=== PATIENT | female | born 1975 | race Caucasian/White ===

== ENCOUNTER 2016-12-20 15:53 | Emergency (ER) | payer BC ==
[~2016-12-20] VITALS: Ht 160 cm; Wt 77.1 kg
[~2016-12-20 15:53] MED LIST: AMOXICILLIN 50500 MG PO; APAP/BUTALBITAL1 TA1 PO; BACTRIM DS 8001 TAB PO; BENZONATATE100 MG PO; FLEXERIL10 MG PO; HYDROCODONE1 TABLET PO; KEFLEX 500MG.500 MG PO; LEVOFLOXACIN 5500 M1 PO; NAPROXEN SODIU500 MG PO; NOMEDS *; PEN-VK500 MG PO; PREDNISONE 10MG10 MG PO; SULFAMETHOXAZOL1 TA6 PO; TAMIFLU 75MG CA75 MG PO; TAMIFLU75 MG PO; TESSALON PERLE100 M1 PO; TESSALON PERLE100 MG PO; ULTRAM 50 MG TA50 MG PO
[2016-12-20] MEDS ORDERED: AMOXICILLIN AND1 TER PO (16:03)
--- NOTE | 2016-12-20 16:44 | Emergency Room Report ---
History of Present Illness Time Seen by 1615 Presenting Problem in Triage Pt arrived:Walked Presenting Problem:SICK 2-3 WEEKS, BEEN TO DR TWICE. EARS, SINUS, STOMACH UPSET , PUT ON ANTIBIOTICS AND NO BETTER. 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 N Clinical Suspician of Infection? Y Mental Status: 1 - Regular (Normal Baseline) Sepsis Risk:Possible Sepsis Risk Have you (or family members/close friends) recently traveled outside the [place]? N If Yes, where/when: Have you had exposure to infectious disease within the past month? TB? Other? Specify: Patient newly on Augment x a day and a half for sinusitis. She is neutropenic, followed by Dr. Owen. She has sinus congestion and is not taking decongestants. She has had her symptoms for two weeks, and "was on an antibiotic that started with a c". No fever. Has had a little GI upset, but no vomiting. ALLERGIES Coded Allergies: No Known Allergies (11/04/15) Home Medications Active Scripts Cyclobenzaprine Hcl (Flexeril) 10 MG PO TID #10 TAB Prov: 11/04/15 Reported Medications AMOXICILLIN/POTASSIUM CLAV (Amoxicillin-Clav ER 1,000-62.5) 1 TAB PO BID History Medical History General CAD? No Angina: No IN: No Hypertension? No Hyperlipidemia? No CHF? No DVT? No PE? No COPD? No Asthma? No Anemia? No GERD? No Gastric ulcers? No GI Bleed? No Hernia? No Thyroid Problems? No Hypothyroidism? No CVA? No Seizures? No Diabetes? No Renal Insuffiency? No End Stage Renal Disease? No UTI? No Stones? No GB Disease: No Nephritic Syndrome? No Asplenia? No Hepatitis? No Sickle Cell Disease? No Arthritis? No Migraines? No Cataracts? No Glaucoma? No MRSA? No HIV? No TB? No Anxiety? No Depression? No Cancer? No More? Yes Additional hx: NEUTROPENIA Immunization Hx DT/Tetanus UNKNOWN Surgical Hx Previous Surgery?Y TUBAL PREG X 2 BONE [facility] CONS[facility] Hx LMP 2 Weeks Ago Social History Smoking Hx Smoker: Never Smoker Tobacco: No Alcohol Alcohol: No Review of Systems All Other Systems Reviewed and Negative ENT see HPI, ear pain, nose congestion. Comment neutropenia, followed by Dr. Owen Physical Exam Vital Signs Vital Signs Date Time Temp Pulse Resp B/P Pulse O2 O2 Flow FiO2 Ox Delivery Rate 12/20 1556 97.9 112 20 127/89 98 General Appearance normal appearance, WD/WN, no apparent distress Eye Exam - bilateral eye normal exam, bilateral eye PERRL, bilateral eye EOMI Ear, Nose, Throat hearing grossly normal, abnormal TM (R) (cloudy R TM), OP wet, no erythema or exudates at all, L maxillary sinus tenderness; nares patent with no blockage or deviation of septum; no polyps; no cobblestoning; thin clear mucoid d/c bilaterally. , No post nasal drip at all. Neck normal inspection, supple, full range of motion Respiratory Status Yes: trachea midline, chest symmetrical, non tender chest. No: respiratory distress, tender on palpation, use of accessory muscles, pain on inspiration, pain on expiration, productive cough, non productive cough. Lung Sounds bilateral: normal breath sounds, lungs clear. Cardiovascular normal exam, regular rate/rhythm, no peripheral edema, no gallop, no JVD, no murmur, no rub, normal peripheral pulses Gastrointestinal normal bowel sounds, normal exam, soft, no organomegaly, no pulsatile mass, no guarding, no rebound Extremities normal range of motion Neurologic alert, normal exam, no motor/sensory deficits, oriented x 3 ( ambulatory, alert, nonfocal) Glascow Coma Scale Glascow Coma Scale Response Value EYE response: 4 Spontaneously 4 MOTOR response: 6 OBEYS 6 VERBAL response: 5 Oriented & Converses 5 Total 15 Skin intact, normal color, warm/dry (no rashes or purpura) Medical Decision Making LABS/Meds/Orders Pt receiving controlled substance in ED? No Results/Orders Laboratory Tests 12/20/16 1645: WBC 2.6 L, RBC 4.93, Hgb 14.5, Hct 43.4, MCV 88.1, RDW 12.9, Plt Count 334, MPV 5.9 L, Gran % 37.7, Gran # 1.0 L, Total Counted Pending, Lymphocytes % 49.4, Monocytes % 10.9 H, Eosinophils % 1.5, Basophils % 0.4, Neutrophils Pending, Lymphocytes (Manual) Pending, Lymphocytes # 1.3, Monocytes # 0.3, Eosinophils # 0.0, Basophils # 0.0, Platelet Estimate Pending, PUBS MCHC 33.4, MCH 29.4 Orders Procedure Date/time Status DIFFERENTIAL-WBC 12/20 1645 Active CBC WITH AUTO DIFF 12/20 1639 Active Departure Departure Time of Disposition 172 Disposition DC Home or Self Care(routine) Clinical Impression Primary Impression: Sinusitis, acute, maxillary Condition STABLE Referrals Solange Hamilton APRN (Family) Patient Instructions DI for Sinusitis Additional Instructions See your family doctor for follow up, one to three days; see Dr. Owen next available appointment. Continue Augmentin. Recommend Claritin or Zyrtec. You may also try Sudafed decongestant. Tylenol as needed. WBC was 2.6 today. Discharge Counseling Counseled pt/family regarding diagnosis, test results, medications/RX, home care, follow up needs ED Critical Care Critical Care No at 1722
[2016-12-20 17:10] LABS: HEMOGLOBIN 14.5 g/dL (12.2-16.2); LYMPH # 1.3 K/mm3 (0.7-4.5); LYMPH % 49.4 % (10-50.0)
[2016-12-20 17:32] VITALS: BP 127/89
[2016-12-20 17:33] LABS: NEUTROPHILS 16 % (42-76)
--- OUTSIDE RECORDS SUMMARY | 2016-12-26 07:47 | External Medical Summary Rpt ---
Author Author , Organization [employer] Address Unknown Phone Unavailable Care Team Providers Care Teleservices Representative Name Role Phone [facility], Unavailable Unavailable [facility] Purpose Continuity of Care Document - 08-29-2009 through 2016 Problems Code Diagnosis DOS Provider Status 33781 NEUTROPENIA 11-26-2009 [facility] UNSPECIFIED 7856 ENLARGEMENT 11-26-2009 [facility] NODES 10421 CYCLIC 11-22-2009 [facility] 18221 OTHER 11-05-2009 [facility] FATIGUE 2859 UNSPECIFIED 10-29-2009 [facility] ANEMIA [facility] 86767 UNSPECIFIED 09-16-2009 [facility] 7804 DIZZINESS 09-16-2009 [facility] GIDDINESS 70221 OTHER 09-16-2009 [facility] INVOLVING HEAD AND NECK V7260 LABORATORY 09-06-2009 [facility] EXAMINATION [facility] UNSPECIFIED 463 ACUTE 08-29-2009 [facility] TONSILLITIS [facility] Procedures Procedure DOS Code Location Performer Comment COLLECTIO 20198 [facility] N VENOUS 0 Y Y BLOOD [facility] VENIPUNCT URE CUL BACT 69159 [facility] STOOL 0 Y Y AEROBIC [facility] ISOL SALMONELL A&SHIGELL CUL BACT 62292 [facility] STOOL 0 Y Y AEROBIC [facility] ADDL PATHOGENS &ID EA SPCL STN 57492 [facility] 2 I&R 0 Y Y EXCPT [facility] MICROORG/ ENZYME/IM CYT BLOOD 72918 [facility] UN[facility]ERSIT COUNT 0 Y Y COMPLETE [facility] AUTO&AUTO DIFRNTL WBC OVA&KLEVER 79245 [facility] ITES 0 Y Y DIRECT [facility]OSPITAL [facility]OSPITAL SMEARS CONCENTRA TION & ID SMR PRIM 81775 [facility] SRC 0 Y Y GRAM/GIEM [facility] SA STAIN BCT FUNGI/KARINA L IAADIADOO 90128 [facility] NOT 0 Y Y OTHERWISE [facility] HOSPITAL SPECIFIED INF AGENT 02702 [facility] UNIVERS DET 0 Y Y NUCLEIC [facility] ACID CLOSTRIDI UM AMP PROBE BLOOD 09105 [facility] COUNT 0 Y Y COMPLETE [facility] AUTO&AUTO DIFRNTL WBC COLLECTIO 27068 [facility] N VENOUS 0 Y Y BLOOD [facility] COLLECTIO 31585 [facility] N VENOUS 0 Y Y BLOOD [facility] BLOOD 32297 [facility] COUNT 0 Y Y [facility]TE [facility]PITAL AUTO&AUTO DIFRNTL WBC BLOOD 59461 [facility] COUNT 0 Y [facility] AUTO&AUTO DIFRNTL WBC INJECTION J1440 [facility] 0 Y Y [facility] 300 MCG COLLECTIO 95464 [facility] N [facility]ENOUS 0 Y Y BLOOD [facility] URE COLLECTIO 69345 [facility] N VENOUS 0 Y Y BLOOD [facility] BLOOD 30817 [facility] COUNT 0 Y Y COMPLETE [facility] AUTO&AUTO DIFRNTL WBC BLOOD 41187 [facility] COUNT 0 Y Y COMPLETE [facility] AUTO&AUTO DIFRNTL WBC COLLECTIO 38887 [facility] N VENOUS 0 Y Y BLOOD [facility] THERAPEUT 07013 [facility] IC 0 Y Y PROPHYLAC [facility] TIC/DX INJECTION SUBQ/IM BLOOD 08939 [facility] COUNT 0 Y Y COMPLETE [facility] AUTO&AUTO DIFRNTL WBC INJECTION J1440 [facility]IT 0 Y Y [facility] 300 MCG INJECTION J1440 [facility] 0 Y Y [facility] MCG BLOOD 48708 [facility] COUNT 0 Y Y COMPLETE [facility] AUTO&AUTO DIFRNTL WBC COLLECTIO 26544 [facility] N VENOUS 0 Y Y BLOOD [facility] URE COLLECTIO 29949 [facility] N VENOUS 0 Y Y BLOOD [facility] U[facility] FLOW 64659 [facility] CYTOMETRY 0 Y Y CELL [facility] SURF MARKER TECHL ONLY EA COMPREHEN 87939 [facility] UNIVERS SIVE 0 Y Y METABOLIC HOSPITAL [facility] PANEL BLOOD 99647 [facility] COUNT 0 Y Y COMPLETE HOSPITAL [facility] AUTO&AUTO DIFRNTL WBC FLOW 78242 [facility] CYTOMETRY 0 Y Y CELL HOSPITAL [facility] SURF MARKER TECHL ONLY 1ST COMPRE 43326 [facility] AUDIOMETR 0 Y Y Y HOSPITAL [facility] THRESHOLD EVAL SP RECOGNIJ TYMPANOME 88184 [facility] TRY 0 Y Y HOSPITAL [facility] COLLECTIO 59148 [facility] N VENOUS 0 Y Y BLOOD [facility] U[facility] BASIC 28409 [facility] UNIVERS METABOLIC 0 Y Y PANEL [facility] TOTAL BLOOD 29087 [facility] UNIVERS COUNT 0 Y Y COMPLETE [facility] AUTOMATED Encounters Encounter Start End Date Code Location Performer Type Date [facility] UNIVERSIT - 0 0 Y [facility] T OFFICE 90105 UN[facility]ERS[facility] OUTPATIEN 0 0 Y T [address] UNIVERSIT - 0 0 Y [facility] T OFFICE 06287 UN[facility]ERS[facility] OUTPATIEN 0 0 Y [address] UNIVERSIT - 0 0 Y [facility] UNIVERSIT - 0 0 Y [facility] UNIVERS[facility] - 0 0 Y [facility] UNIVERSIT - 0 0 Y [facility] UNIVERS[facility] - 0 0 Y [facility] UNIVERSIT - 0 0 Y [facility] T OFFICE 11362 UNIVERSIT OUTPATIEN 0 [address] Y [address] UNIVERSIT - 0 0 Y [facility] - 0 0 Y [facility] - 0 0 Y [facility] - 0 0 Y [facility]
--- OUTSIDE RECORDS SUMMARY | 2016-12-26 07:47 | External Medical Summary Rpt ---
Author Author , Organization [employer] Address Unknown Phone Unavailable Care Team Providers Care Tray Drier Operator Name Role Phone Ibrahima Mckeon MD, Unavailable Unavailable bIrahima Mckeon MD [facility], Unavailable Unavailable [facility] Purpose Continuity of Care Document - 08-29-2009 through 2016 Problems Code Diagnosis DOS Provider Status D70.4 CYCLIC 12-08-2016 NEUTROPENIA D72.819 DECREASED 11-20-2016 WHITE BLOOD CELL COUNT, UNSPECIFIED 487.1 487.1 FLU W 08-[facility] NEC 466.0 466.0 ACUTE 10-14-2012 [facility] 493.90 493.90 10-14-2012 [place] [facility] 73808 NEUTROPENIA 11-26-2009 [facility] UNSPECIFIED 7856 ENLARGEMENT 11-26-2009 [facility] NODES 95455 CYCLIC 11-22-2009 [facility] 98584 OTHER 11-05-2009 [facility] FATIGUE 2859 UNSPECIFIED 10-29-2009 [facility] ANEMIA [facility] 04896 UNSPECIFIED 09-16-2009 [facility] 7804 DIZZINESS 09-16-2009 [facility] GIDDINESS 23483 OTHER 09-16-2009 [facility] INVOLVING HEAD AND NECK V7260 LABORATORY 09-06-2009 [facility] UNSPECIFIED 463 ACUTE 08-29-2009 [place] TONSILLITIS [facility] J01.00 ACUTE MAXILLARY SINUSITIS, UNSPECIFIED Allergies, Adverse Reactions, Alerts Type Allergy to substance Adverse Reaction to Substance Substance Reaction Severity INGREDIENT: NO KNOWN Unknown Unknown - NO KNOWN DRUG ALLERGY Medications Na ND Rx Da Fi Fi Am Da Di Ph RX Ph St me C No te ll ll ou ys ag ar # ys at rm s nt no ma ic us Or Da si cy ia de te s n re d TY 50 01 0 No LE 58 -1 NO 00 1- Lo L 45 20 ng EX 10 14 er -S 3 TR Ac ti 50 ve [address] ET Ib 62 01 0 No up 58 -1 ro 40 1- Lo fe 74 20 ng n 60 14 er 40 1 0M Ac G ti Ta ve bl et BE 57 01 0 No NZ 66 -1 ON 40 1- Lo AT 13 20 ng AT 38 14 er E 8 10 Ac 0 ti MG ve CA PS UL E AC 51 01 0 No ET 07 -1 AM 90 1- Lo IN 16 20 ng OP 19 14 er HE 9H N Ac W/ ti CO ve DE IN E #3 TA K Be 00 03 0 No nz 60 -1 on 32 8- Lo at 42 20 ng at 62 13 er e 1 10 Ac 0M ti G ve Ca ps ul e VE 00 03 0 No NT 17 -1 OL 30 8- Lo IN 68 20 ng 22 13 er HF 4 A Ac 90 ti ve MC G IN ESCAMILLA LE R Ae 08 03 0 No ro 37 -1 ch 30 8- Lo am 76 20 ng be 50 13 er r/ 0 Op Ac ti ti escamilla ve le r De 00 03 0 No xa 51 -1 me 74 8- Lo th 90 20 ng as 12 13 er on 5 e Ac 4M ti G/ ve Ml Sd v Vital Signs 08-09-2013 22:34 Name Value Interpretat Reference Comment ion Range Body 102.0 Temperature [degF] BP 87 mm[Hg] Diastolic BP Systolic 151 mm[Hg] Heart 101 /min Rate/Pulse O2% 96 % Respiratory 20 /min Rate 08-09-2013 22:04 Name Value Interpretat Reference Comment ion Range Body 102 [degF] Temperature BP 66 mm[Hg] Diastolic BP Systolic 126 mm[Hg] Heart 94 /min Rate/Pulse O2% 96 % Respiratory 20 /min Rate 10-14-2012 07:01 Name Value Interpretat Reference Comment ion Range BP 76 mm[Hg] Diastolic BP Systolic 130 mm[Hg] Heart 80 /min Rate/Pulse O2% 98 % Respiratory 16 /min Rate 10-14-2012 06:27 Name Value Interpretat Reference Comment ion Range BP 82 mm[Hg] Diastolic BP Systolic 133 mm[Hg] Heart 66 /min Rate/Pulse Respiratory 16 /min Rate 10-14-2012 05:47 Name Value Interpretat Reference Comment ion Range O2% 98 % Results Labs Lab Lab Date Result Refere Interp Status Commen Order Detail nces retati t Range on Differential panel, method unspecified - (12-20-2016 16:45) LYMPH 64 % 10% - High complet 017 50% ed 16:45 Platele NORMAL complet ts 017 ed [Presen 16:45 ce] in Blood by Light microsc opy CHLAMYDIA AND GONORRHEA TESTING (06-27-2011 15:35) Chlamyd NEGATIV complet ia 011 E ed trachom 15:35 atis rRNA [Presen ce] in Unspeci fied specime n by Probe & target amplifi cation method Neisser NEGATIV complet ia 011 E ed gonorrh 15:35 oeae rRNA [Presen ce] in Unspeci fied specime n by Probe & target amplifi cation method CHLAMYDIA AND GONORRHEA TESTING (06-27-2011 15:35) COLLECT NA complet OR 011 ed 15:35 ETHNICI WHITE, complet TY 011 NON-HIS ed 15:35 PANIC KIT September complet EXPIRAT 011 31, ed ION 15:35 2011 DATE SYMPTOM YES complet S 011 ed 15:35 REASON REVISIT complet FOR 011 /ANNUAL ed REQUEST 15:35 FAMILY PLANNIN G VISIT SPECIME FEMALE complet N 011 ENDOCER ed SOURCE 15:35 VICAL PREGNAN NO complet T 011 ed 15:35 CHART NA complet NUMBER 011 ed 15:35 Chlamyd Pending complet ia 011 ed trachom 15:35 atis rRNA [Presen ce] in Unspeci fied specime n by Probe & target amplifi cation method Neisser Pending complet ia 011 ed gonorrh 15:35 oeae rRNA [Presen ce] in Unspeci fied specime n by Probe & target amplifi cation method Procedures Procedure DOS Code Location Performer Comment COLLECTIO 16872 [facility] N VENOUS 0 Y Y BLOOD [facility] VENIPUNCT URE INF AGENT 14103 [facility] DET 0 Y Y NUCLEIC [facility] ACID CLOSTRIDI UM AMP PROBE CUL BACT 86782 [facility] STOOL 0 Y Y [facility]IC [facility]OSPITAL ISOL SALMONELL A&SHIGELL CUL BACT 33441 [facility] ST[facility]OL 0 [facility] ADDL PATHOGENS &ID EA SPCL STN 34088 [facility] 2 I&R 0 Y Y EXCPT [facility] MICROORG/ ENZYME/IM CYT BLOOD 12883 [facility] COUNT 0 Y Y COMPLETE [facility] AUTO&AUTO DIFRNTL WBC OVA&KLEVER 54150 [facility] ITES 0 Y Y DIRECT [facility]OSP[facility]OSPITAL SMEARS CONCENTRA TION & ID SMR PRIM 96444 [facility] SRC 0 Y Y GRAM/GIEM [facility] SA STAIN BCT FUNGI/KARINA L IAADIADOO 51269 [facility] NOT 0 Y Y OTHERWISE [facility] SPECIFIED BLOOD 68881 [facility] COUNT 0 Y Y COMPLETE [facility] AUTO&AUTO DIFRNTL WBC COLLECTIO 32681 [facility] N VENOUS 0 Y Y BLOOD [facility] URE COLLECTIO 63226 [facility] N VENOUS 0 Y Y BLOOD [facility] BLOOD 66420 [facility] COUNT 0 Y Y COMPLETE [facility] AUTO&AUTO DIFRNTL WBC BLOOD 63633 [facility] COUNT 0 Y Y COMPLETE [facility] AUTO&AUTO DIFRNTL WBC INJECTION J1440 [facility] UNIV[facility]IT 0 Y Y [facility] M 300 MCG COLLECTIO 41708 [facility] N VENOUS 0 Y Y BLOOD [facility] URE COLLECTIO 14766 [facility] N VENOUS 0 Y Y BLOOD [facility] URE BLOOD 30560 [facility] COUNT 0 Y Y COMPLETE [facility] AUTO&AUTO DIFRNTL WBC BLOOD 95825 [facility] COUNT 0 Y Y COMPLETE [facility] AUTO&AUTO DIFRNTL WBC COLLECTIO 02609 [facility] N VENOUS 0 Y Y BLOOD [facility] THERAPEUT 99936 [facility] IC 0 Y Y PROPHYLAC HOSPITAL [facility] TIC/DX INJECTION SUBQ/IM INJECTION J1440 [facility] UNIVERSIT 0 Y Y [facility] M 300 MCG BLOOD 52050 [facility] COUNT 0 Y [facility] AUTO&AUTO DIFRNTL WBC BLOOD 50775 [facility] COUNT 0 Y [facility] AUTO&AUTO DIFRNTL WBC INJECTION J1440 [facility] 0 Y Y [facility] M 300 MCG COLLECTIO 47862 [facility] N VENOUS 0 Y Y BLOOD [facility] VENIPUNCT URE COLLECTIO 63960 [facility] N VENOUS 0 Y Y BLOOD [facility] URE COMPREHEN 89373 [facility] SIVE 0 Y [facility] PANEL FLOW 89619 [facility] CYTOMETRY 0 Y Y CELL [facility] SURF MARKER TECHL ONLY EA BLOOD 41971 [facility] COUNT 0 Y Y COMPLETE [facility] AUTO&AUTO DIFRNTL WBC FLOW 00858 [facility] CYTOMETRY 0 Y Y CELL [facility] SURF MARKER TECHL ONLY 1ST COMPRE 25948 [facility] AUDIOMETR 0 Y Y Y [facility]OSPITAL [facility] THRESHOLD EVAL SP RECOGNIJ TYMPANOME 20758 [facility] TRY 0 Y Y [facility] BASIC 02974 [facility] UN[facility]ERS[facility] METABOLIC 0 Y Y PANEL [facility] CALCIUM TOTAL COLLECTIO 51293 [facility] N VENOUS 0 Y Y BLOOD [facility] URE BLOOD 98727 [facility] COUNT 0 Y Y COMPLETE HOSPITAL [facility] AUTOMATED Encounters Encounter Start End Date Code Location Performer Type Date Emergency KORY Mckeon MD (ER) 4 21:48 4 22:36 [facility] Emergency KORY Mckeon MD (ER) 3 05:40 3 07:02 [facility] UNIVERSIT - 0 0 Y OUTPATI HOSPITAL T OFFICE 67512 [facility] OUTPATIEN 0 0 Y T VISIT [address] UNIVERSIT - 0 0 Y [facility] UNIVERSIT - 0 0 Y [facility] T OFFICE 76524 UNIVERSIT OUTPATIEN [address] UNIVERSIT - 0 0 Y [facility] UNIVERSIT - 0 0 Y [facility] UNIVERSIT - 0 0 Y [facility] UNIVERSIT - 0 0 Y [facility] UNIVERSIT - 0 0 Y [facility] UNIVERSIT - 0 0 Y [facility] T OFFICE 32854 UNIVERSIT OUTPATIEN [address] UNIVERSIT - 0 0 Y [facility] UNIVERSIT - 0 0 Y [facility] UNIVERSIT - 0 0 Y INPATIENT HOSPITAL
--- OUTSIDE RECORDS SUMMARY | 2016-12-26 07:47 | External Medical Summary Rpt ---
Author Author , Organization [employer] Address Unknown Phone Unavailable Care Team Providers Care Yacht Captain Name Role Phone [facility], Unavailable Unavailable [facility] Purpose Continuity of Care Document - 08-29-2009 through 2016 Problems Code Diagnosis DOS Provider Status 36128 NEUTROPENIA 11-26-2009 [facility] UNSPECIFIED 7856 ENLARGEMENT 11-26-2009 [facility] NODES 25247 CYCLIC 11-22-2009 [facility] 12434 OTHER 11-05-2009 [facility] FATIGUE 2859 UNSPECIFIED 10-29-2009 [facility] ANEMIA [facility] 20293 UNSPECIFIED 09-16-2009 [facility] 7804 DIZZINESS 09-16-2009 [facility] GIDDINESS 56288 OTHER 09-16-2009 [facility] INVOLVING HEAD AND NECK V7260 LABORATORY 09-06-2009 [facility] EXAMINATION [facility] UNSPECIFIED 463 ACUTE 08-29-2009 [facility] TONSILLITIS [facility] Procedures Procedure DOS Code Location Performer Comment COLLECTIO 86677 [facility] N VENOUS 0 Y Y BLOOD [facility] VENIPUNCT URE CUL BACT 53442 [facility] STOOL 0 Y Y AEROBIC [facility] ISOL SALMONELL A&SHIGELL CUL BACT 38452 [facility] STOOL 0 Y Y [facility]OB[facility] ADDL PATHOGENS &ID EA SPCL STN 31674 [facility] 2 I&R 0 Y Y EXCPT [facility] MICROORG/ ENZYME/IM CYT BLOOD 95612 [facility] UN[facility]IT COUNT 0 Y Y COMPLETE [facility] AUTO&AUTO DIFRNTL WBC OVA&KLEVER 22047 [facility] ITES 0 Y Y DIRECT [facility] HOSPITAL SMEARS CONCENTRA TION & ID SMR PRIM 16433 [facility] SRC 0 Y Y GRAM/GIEM [facility] SA STAIN BCT FUNGI/KARINA L IAADIADOO 17811 [facility] NOT 0 Y Y OTHERWISE [facility] HOSPITAL SPECIFIED INF AGENT 20932 [facility] UN[facility]ERS DET 0 Y Y NUCLEIC [facility] ACID CLOSTRIDI UM [facility] PROBE BLOOD 51995 [facility] COUNT 0 Y Y [facility]PLETE [facility] AUTO&AUTO DIFRNTL WBC COLLECTIO 60885 [facility] N VENOUS 0 Y Y BLOOD [facility] URE COLLECTIO 30651 [facility] N VENOUS 0 Y Y BLOOD [facility] BLOOD 45336 [facility] COUNT 0 Y [facility] AUTO&AUTO DIFRNTL WBC BLOOD 29749 [facility] AUTO&AUTO DIFRNTL WBC INJECTION J1440 [facility] 0 Y Y [facility] 300 MCG COLLECTIO 75552 [facility] N VENOUS 0 Y Y BLOOD [facility] URE COLLECTIO 14117 [facility] N VENOUS 0 Y Y BLOOD [facility] BLOOD 28751 [facility] COUNT 0 Y Y [facility] AUTO&AUTO DIFRNTL WBC BLOOD 11198 [facility] COUNT 0 Y Y [facility] AUTO&AUTO DIFRNTL WBC COLLECTIO 29025 [facility] N VENOUS 0 Y Y BLOOD [facility] THERAPEUT 40242 [facility] IC 0 Y Y PROPHYLAC [facility] TIC/DX INJECTION SUBQ/IM BLOOD 86026 [facility] COUNT 0 Y Y COMPLETE [facility] AUTO&AUTO DIFRNTL WBC INJECTION J1440 [facility] 0 Y Y [facility] 300 MCG INJECTION J1440 [facility] 0 [facility] 300 MCG BLOOD 76670 [facility] COUNT 0 Y Y [facility] AUTO&AUTO DIFRNTL WBC COLLECTIO 29594 [facility] N VENOUS 0 Y Y BLOOD [facility] URE COLLECTIO 62469 [facility] N VENOUS 0 Y Y BLOOD [facility] URE FLOW 33052 [facility] CYTOMETRY 0 Y Y CELL [facility] SURF MARKER TECHL ONLY EA COMPREHEN 11830 [facility] UN[facility]ERS SIVE 0 Y Y [facility]OSP[facility] PANEL BLOOD 21868 [facility] COUNT 0 Y Y [facility] AUTO&AUTO DIFRNTL WBC FLOW 06539 [facility] CYTOMETRY 0 Y Y CELL HOSPITAL [facility] SURF MARKER TECHL ONLY 1ST COM[address]77 [facility] AUDIOMETR 0 Y Y Y HOSPITAL [facility] THRESHOLD EVAL SP RECOGNIJ TYMPANOME 96230 [facility] TRY 0 Y Y HOSPITAL [facility] COLLECTIO 92738 [facility] N VENOUS 0 Y Y BLOOD [facility] URE BASIC 71503 [facility] UNIVERS METABOLIC 0 Y Y PANEL [facility] TOTAL BLOOD 54466 [facility] UNIVERS COUNT 0 Y Y COMPLETE [facility] AUTOMATED Encounters Encounter Start End Date Code Location Performer Type Date [facility] UN[facility]ERSIT - 0 0 Y [facility] T OFFICE 54494 [facility] OUTPATIEN 0 0 Y T [address] UN[facility]ERSIT - 0 0 Y [facility] T OFFICE 73007 [facility] OUTPATIEN 0 0 Y T [address] UNIVERSIT - 0 0 Y [facility] UNIVERSIT - 0 0 Y [facility] UNIVERSIT - 0 0 Y [facility] UNIVERSIT - 0 0 Y [facility] UNIVERSIT - 0 0 Y [facility] UNIVERSIT - 0 0 Y [facility] T OFFICE 65591 [facility] OUTPATIEN 0 0 Y [address] UNIVERSIT - 0 0 Y [facility] UNIVERSIT - 0 0 Y [facility] - 0 0 Y [facility] - 0 0 Y [facility]
--- OUTSIDE RECORDS SUMMARY | 2016-12-26 07:47 | External Medical Summary Rpt ---
Author Author , Organization [employer] Address Unknown Phone Unavailable Care Team Providers Care Production Control Coordinator Name Role Phone Ibrahima Mckeon MD, Unavailable Unavailable Ibrahima Mckeon MD [facility], Unavailable Unavailable [facility] Purpose Continuity of Care Document - 08-29-2009 through 2016 Problems Code Diagnosis DOS Provider Status D70.4 CYCLIC 12-08-2016 NEUTROPENIA D72.819 DECREASED 11-20-2016 WHITE BLOOD CELL COUNT, UNSPECIFIED 487.1 487.1 FLU W 08-09-2013 [facility] NEC 466.0 466.0 ACUTE 10-14-2012 [facility] 493.90 493.90 10-14-2012 [place] [facility], [facility] UNSPECIFIED Hospital 53801 NEUTROPENIA 11-26-2009 [facility] UNSPECIFIED 7856 ENLARGEMENT 11-26-2009 [facility] NODES 70569 CYCLIC 11-22-2009 [facility] 63742 OTHER 11-05-2009 [facility] FATIGUE 2859 UNSPECIFIED 10-29-2009 [place] ANEM[facility] 33207 UNSPECIFIED 09-16-2009 [facility] 7804 DIZZINESS 09-16-2009 [facility] GIDDINESS 14698 OTHER 09-16-2009 [facility] INVOLVING HEAD AND NECK V7260 LABORATORY 09-06-2009 [facility] UNSPECIFIED 463 ACUTE 08-29-2009 [place] TONSILLITIS [facility] J01.00 ACUTE MAXILLARY SINUSITIS, UNSPECIFIED Allergies, [...] Procedure DOS Code Location Performer Comment COLLECTIO 52018 [facility] N VENOUS 0 Y Y BLOOD [facility] VENIPUNCT URE INF AGENT 91067 [facility] DET 0 Y Y NUCLEIC [facility] ACID CLOSTRIDI UM AMP PROBE CUL BACT 36725 [facility] STOOL 0 Y [facility] ISOL SALMONELL A&SHIGELL CUL BACT 21560 [facility]OL [facility]OSPITAL ADDL PATHOGENS &ID EA SPCL STN 52513 [facility] 2 I&R 0 Y Y EXCPT [facility] MICROORG/ ENZYME/IM CYT BLOOD 22597 [facility] COUNT 0 Y Y COMPLETE [facility] AUTO&AUTO DIFRNTL WBC OVA&KLEVER 30432 [facility] ITES 0 Y Y [facility] HOSPITAL SMEARS CONCENTRA TION & ID SMR PRIM 12044 [facility] SRC 0 Y Y GRAM/GIEM [facility] SA STAIN BCT FUNGI/KARINA L IAADIADOO 65493 [facility] NOT 0 Y Y OTHERWISE [facility] SPECIFIED BLOOD 77108 [facility] COUNT 0 Y Y COMPLETE [facility] AUTO&AUTO DIFRNTL WBC COLLECTIO 50254 [facility] N VENOUS 0 Y Y BLOOD [facility] URE COLLECTIO 37301 [facility] N VENOUS 0 Y Y BLOOD [facility] BLOOD 47967 [facility] COUNT 0 Y Y COMPLETE [facility] AUTO&AUTO DIFRNTL WBC BLOOD 33835 [facility] COUNT 0 Y Y COMPLETE [facility] AUTO&AUTO DIFRNTL WBC INJECTION J1440 [facility]IT 0 Y Y [facility] M 300 MCG COLLECTIO 03863 [facility] N VENOUS 0 Y Y BLOOD [facility] URE COLLECTIO 17356 [facility] N VENOUS 0 Y Y BLOOD [facility] URE BLOOD 26516 [facility] COUNT 0 Y Y COMPLETE [facility] AUTO&AUTO DIFRNTL WBC BLOOD 57675 [facility] COUNT 0 Y Y COMPLETE [facility] AUTO&AUTO DIFRNTL WBC COLLECTIO 87353 [facility] N VENOUS 0 Y Y BLOOD [facility] THERAPEUT 00247 [facility] IC 0 Y Y PROPHYLAC HOSPITAL [facility] TIC/DX INJECTION SUBQ/IM INJECTION J1440 [facility] 0 Y Y [facility] M 300 MCG BLOOD 60314 [facility] COUNT [facility] Y [facility] AUTO&AUTO DIFRNTL WBC BLOOD 93041 [facility] COUNT 0 Y [facility] AUTO&AUTO DIFRNTL WBC INJECTION J1440 [facility] 0 Y Y [facility] M 300 MCG COLLECTIO 47018 [facility] N VENOUS 0 Y Y BLOOD [facility] VENIPUNCT URE COLLECTIO 14108 [facility] N VENOUS 0 Y Y BLOOD [facility] URE COMPREHEN 19981 [facility] SIVE 0 Y [facility] PANEL FLOW 17860 [facility] CYTOMETRY 0 Y Y CELL [facility] SURF MARKER TECHL ONLY EA BLOOD 97003 [facility] COUNT 0 Y Y COMPLETE [facility] AUTO&AUTO DIFRNTL WBC FLOW 74692 [facility] CYTOMETRY 0 Y Y CELL [facility]OSPITAL [facility] SURF MARKER TECHL ONLY 1ST COMPRE 46025 [facility] AUDIOMETR 0 Y Y Y HOSPITAL [facility] THRESHOLD EVAL SP RECOGNIJ TYMPANOME 53434 [facility] TRY 0 Y Y HOSPITAL [facility] BASIC 96311 [facility] UNIVERS[facility] METABOLIC 0 Y Y PANEL [facility]OS[facility] CALCIUM TOTAL COLLECTIO 68614 [facility] N VENOUS 0 Y Y BLOOD [facility] URE BLOOD 89391 [facility] COUNT 0 Y Y COMPLETE [facility]OSPITAL [facility] AUTOMATED Encounters Encounter Start End Date Code Location Performer Type Date Emergency KORY Mckeon MD (ER) 4 21:48 4 22:36 [facility] Emergency KORY Mckeon MD (ER) 3 05:40 3 07:02 [facility] UNIVERSIT - 0 0 Y OUTPATI HOSPITAL T OFFICE 63071 [facility] OUTPATIEN 0 0 Y T VISIT [address] UNIVERSIT - 0 0 Y [facility] UNIVERSIT - 0 0 Y [facility] T OFFICE 06593 UN[facility]ERS[facility] OUTPATIEN [address] UNIVERSIT - 0 0 Y [facility] UNIVERSIT - 0 0 Y [facility] UNIVERSIT - 0 0 Y [facility] UNIVERSIT - 0 0 Y [facility] UNIVERSIT - 0 0 Y [facility] UNIVERSIT - 0 0 Y [facility] T OFFICE 57578 UN[facility]ERS[facility] OUTPATIEN [address] UNIVERSIT - 0 0 Y [facility] UNIVERSIT - 0 0 Y [facility] UNIVERSIT - 0 0 Y INPATIENT HOSPITAL
--- OUTSIDE RECORDS SUMMARY | 2016-12-26 07:48 | External Medical Summary Rpt ---
Demographics Preferred Language Citizen Of [place] Marital Status Unknown Hindu Affiliation Unknown Race Unknown Ethnic Group Unknown Author Author , Organization [employer] Address Unknown Phone Unavailable Purpose Continuity of Care Document - through 2016 Immunization No patient found.
--- OUTSIDE RECORDS SUMMARY | 2016-12-26 07:48 | External Medical Summary Rpt ---
Author Author QUYEN Costa, QUYEN [employer] Organization [employer] Address Unknown Phone Unavailable Results CBC W Auto Differential panel in Blood Observa Value Referen Units Interpr Notes Date tion ce etation Range Basophils 0 - 0.2 K/MM3 Normal No December 20 informati 2016 4:45 [#/volume on in PM ] in source Blood by data Automated count Basophils 0.1 - 2.0 % Normal No December 20 informati 2016 4:45 leukocyte on in PM s in source Blood by data Automated count Eosinophi 0.0 - 0.4 K/mm3 Normal No December 20 ls informati 2016 4:45 [#/volume on in PM ] in source Blood by data Automated count Eosinophi 0.1 - % Normal No December 20 ls/100 12.0 informati 2016 4:45 leukocyte on in PM s in source Blood by data Automated count Granulocy 1.8 - 7.8 K/mm3 Low No December 20 cierra informati 2016 4:45 [#/volume on in PM ] in source Blood by data Automated count Granulocy 37.0 - % Normal No December 20 cierra/100 80.0 informati 2016 4:45 leukocyte on in PM s in source Blood by data Automated count Hematocri 37.0 - % Normal No December 20 t [Volume 47.0 informati 2016 4:45 on in PM Fraction] source of Blood data Hemoglobi 12.2 - g/dL Normal No December 20 n 16.2 informati 2016 4:45 [Mass/vol on in PM ume] in source Blood data Lymphocyt 0.7 - 4.5 K/mm3 Normal No December 20 es informati 2016 4:45 [#/volume on in PM ] in source Unspecifi data ed specimen by Automated count Lymphocyt 10 - 50.0 % Normal No December 20 es informati 2016 4:45 [#/volume on in PM ] in source Unspecifi data ed specimen by Automated count Erythrocy 27 - 31.2 pg Normal No December 20 te mean informati 2016 4:45 corpuscul on in PM ar source hemoglobi data n [Entitic mass] Erythrocy 31.8 - g/dl Normal No December 20 te mean 35.4 informati 2016 4:45 corpuscul on in PM ar source hemoglobi data n concentra tion [Mass/vol ume] by Automated count Erythrocy 82.2 - fl Normal No December 20 te mean 97.8 informati 2016 4:45 corpuscul on in PM ar volume source [Entitic data volume] by Automated count Monocytes 0.1 - 1.0 K/mm3 Normal No December 20 informati 2016 4:45 [#/volume on in PM ] in source Blood by data Automated count Monocytes 1.7 - 9.3 % High No December 20 / informati 2016 4:45 leukocyte on in PM s in source Blood by data Automated count Platelet 7.4 - fl Low No December 20 mean 10.4 informati 2016 4:45 volume on in PM [Entitic source volume] data in Blood by Automated count Platelets 142 - 424 K/mm3 Normal No December 20 informati 2016 4:45 [#/volume on in PM ] in source Blood data Erythrocy 4.2 - 5.4 M/mm3 Normal No December 20 cierra informati 2016 4:45 [#/volume on in PM ] in source Amniotic data fluid Erythrocy 11.5 - % Normal No December 20 te 17.5 informati 2016 4:45 distribut on in PM ion width source [Entitic data volume] by Automated count Leukocyte 4.8 - K/MM3 Low No December 20 s 10.8 informati 2016 4:45 [#/volume on in PM ] in source Blood data Differential panel, method unspecified - Observa Value Referen Units Interpr Notes Date tion ce etation Range Lymphocyt 0 - 5 % Normal No December 20 es informati 2016 4:45 Variant/1 on in PM 00 source leukocyte data s in Blood by Manual count Neutrophi 0 - 8 % Normal No December 20 ls.band informati 2016 4:45 form/100 on in PM leukocyte source s in data Blood by Automated count Eosinophi 0 - 3 % Normal No December 20 ls/100 informati 2016 4:45 leukocyte on in PM s in source Blood by data Manual count LYMPH 64 10 - 50 % High No December 20 inform2016 tion in 4:45 PM source data Monocytes 2 - 9 % High No December 20 /100 informati 2017 4:45 leukocyte on in PM s in source Blood by data Automated count Platele NORMAL No No No No December 20 ts informa informa informa informa 2016 [Presen tion in tion in tion in tion in 4:45 PM ce] in source source source source Blood data data data data by Light microsc opy Neutrophi 42 - 76 % Low No December 20 ls informati 2016 4:45 [#/volume on in PM ] in source Blood by data Automated count Cells No #CELLS No No December 20 Counted informati informati informati 2017 4:45 Total [#] on in on in on in PM in Blood source source source data data data CHLAMYDIA AND GONORRHEA TESTING Observa Value Referen Units Interpr Notes Date tion ce etation Range COLLECT NA No No No No Jun 27 OR informa informa informa informa 2010 tion in tion in tion in tion in 3:35 PM source source source source data data data data ETHNICI WHITE, No No No No Jun 27 TY NON-HIS informa informa informa informa 2011 PANIC tion in tion in tion in tion in 3:35 PM source source source source data data data data KIT SEPTEMBER No No No No Jun 27 EXPIRAT 31, informa informa informa informa 2011 ION 2012 tion in tion in tion in tion in 3:35 PM DATE source source source source data data data data SYMPTOM YES No No No No Jun 27 S informa informa informa informa 2010 tion in tion in tion in tion in 3:35 PM source source source source data data data data REASON REVISIT No No No No Jun 27 FOR /ANNUAL informa informa informa informa 2011 REQUEST FAMILY tion in tion in tion in tion in 3:35 PM source source source source PLANNIN data data data data G VISIT SPECIME FEMALE No No No No Jun 27 N ENDOCER informa informa informa informa 2010 SOURCE VICAL tion in tion in tion in tion in 3:35 PM source source source source data data data data PREGNAN NO No No No No Jun 27 T informa informa informa informa 2011 tion in tion in tion in tion in 3:35 PM source source source source data data data data CHART NA No No No No Jun 27 NUMBER informa informa informa informa 2011 tion in tion in tion in tion in 3:35 PM source source source source data data data data Chlamyd NEGATIV No No No NEGATIV Jun 27 ia E informa informa informa E 2011 trachom tion in tion in tion in RESULT= 3:35 PM atis source source source WITHIN rRNA data data data NORMAL [Presen ce] in LIMITSP Unspeci OSITIVE fied specime RESULT= n by Probe & ABNORMA target LEQUIVO JOSEPHINE amplifi RESULT= cation method INDETER MINATEU NSATISF ACTORY RESULT= INVALID Neisser NEGATIV No No No NEGATIV Jun 27 ia E informa informa informa E 2011 gonorrh tion in tion in tion in RESULT= 3:35 PM oeae source source source WITHIN rRNA data data data NORMAL [Presen ce] in LIMITSP Unspeci OSITIVE fied specime RESULT= n by Probe & ABNORMA target LEQUIVO JOSEPHINE amplifi RESULT= cation method INDETER MINATEU NSATISF ACTORY RESULT= INVALID EFFECTI VE NOVEMBE R 2009: THE APTIMA COMBO 2 NUCLEIC ACIDAMP LIFICAT ION ASSAY IS NOT INTENDE D FOR THE EVALUAT ION OFSUSPE CTED SEXUAL ABUSE OR FOR OTHER MEDICO- LEGAL INDICAT IONS.FA LSE POSITIV E RESULTS ARE POSSIBL E.\.br\ This report contain s patient informa tion that must be protect ed in accorda nce with the Health Insuran ce Portabi lity and Account ability Act. CHLAMYDIA AND GONORRHEA TESTING Observa Value Referen Units Interpr Notes Date tion ce etation Range COLLECT NA No No No No Jun 27 OR informa informa informa informa 2010 tion in tion in tion in tion in 3:35 PM source source source source data data data data ETHNICI WHITE, No No No No Jun 27 TY NON-HIS informa informa informa informa 2011 PANIC tion in tion in tion in tion in 3:35 PM source source source source data data data data KIT MARCH No No No No Jun 27 EXPIRAT 31, informa informa informa informa 2011 ION 2012 tion in tion in tion in tion in 3:35 PM DATE source source source source data data data data SYMPTOM YES No No No No Jun 27 S informa informa informa informa 2011 tion in tion in tion in tion in 3:35 PM source source source source data data data data REASON REVISIT No No No No Jun 27 FOR /ANNUAL informa informa informa informa 2011 REQUEST FAMILY tion in tion in tion in tion in 3:35 PM source source source source PLANNIN data data data data G VISIT SPECIME FEMALE No No No No Jun 27 N ENDOCER informa informa informa informa 2011 SOURCE VICAL tion in tion in tion in tion in 3:35 PM source source source source data data data data PREGNAN NO No No No No Jun 27 T informa informa informa informa 2011 tion in tion in tion in tion in 3:35 PM source source source source data data data data CHART NA No No No No Jun 27 NUMBER informa informa informa informa 2011 tion in tion in tion in tion in 3:35 PM source source source source data data data data Chlamyd Pending No No No No Jun 27 ia informa informa informa informa 2011 trachom tion in tion in tion in tion in 3:35 PM atis source source source source rRNA data data data data [Presen ce] in Unspeci fied specime n by Probe & target amplifi cation method Neisser Pending No No No \.br\Th Jun 27 ia informa informa informa is 2011 gonorrh tion in tion in tion in report 3:35 PM oeae source source source contain rRNA data data data s [Presen patient ce] in Unspeci informa fied tion specime that n by must be Probe & target protect ed in amplifi accorda cation nce method with the Health Insuran ce Portabi lity and Account ability Act.
--- OUTSIDE RECORDS SUMMARY | 2016-12-26 07:48 | External Medical Summary Rpt ---
Demographics Preferred Language [place] Citizen Marital Status Unknown Sabianism Affiliation Unknown Race Unknown Ethnic Group Unknown Author Author , Organization [employer] Address Unknown Phone Unavailable Purpose Continuity of Care Document - through 2016 Immunization No patient found.
--- OUTSIDE RECORDS SUMMARY | 2016-12-26 07:48 | External Medical Summary Rpt ---
Author Author QUYEN Costa, QUYEN Identify Organization [employer] Address Unknown Phone Unavailable [...]
== END 2016-12-20 17:33 | disposition home or self-care (01) ==
LOC: ER 15:53
PROVIDERS: Emergency Medicine
DX: J01.00 Acute maxillary sinusitis, unspecified (principal)

== ENCOUNTER → 2017-05-07 | Outpatient (CLI) | payer BC ==
[~2017-05-07] MED LIST changes: +AMOXICILLIN AND1 TER PO
--- NOTE | 2017-05-07 15:03 | RADIOLOGY REPORT PS360 ---
US PELVIS-TRANSVAGINAL ONLY HISTORY: Right-sided pelvic pain PELVIC PAIN ORDERING PHYSICIAN: Gabriela DALAL PATIENT AGE: 42 years COMPARISON: 07/06/2011 FINDINGS: The uterus measures 8 x 4 x 5.7 cm. Multiple nabothian cysts are present. The uterus is retroverted. Endometrium is thickened at 14 mm. Left ovary: 4.3 x 3.3 cm. Multiple small follicles are present including a 2.3 x 1.4 cm cyst. There is an additional 2.3 x 1.4 cm bilocular cyst. Right ovary is 3.2 x 2.4 cm and contains small follicles. Para no cul-de-sac fluid is evident. There is bilateral ovarian blood flow. IMPRESSION: 1. Retroverted uterus with thickened endometrium. 2. Left ovarian cysts
== END ==
LOC: RAD 13:21
DX: R10.2 Pelvic and perineal pain (principal)

== ENCOUNTER → 2017-07-13 | Outpatient (CLI) | payer BC ==
--- NOTE | 2017-07-15 10:38 | RADIOLOGY REPORT PS360 ---
CT SINUS (MAX-FACIAL W/O CONT) Ordering Physician: Gabriela Henry LOG SKIDDER Patient Age: 42 years: Female HISTORY: EUSTACHIAN TUBE DYSFUNCTION, ACUTE RECURRENT MAX SINUSITIS TECHNIQUE: Helical CT scanning performed through the facial bones, sinuses with sagittal coronal reconstructions on CT workstation COMPARISON :No previous relevant studies. FINDINGS Bilateral maxillary sinuses are well-developed and clear. Unremarkable. The ostiomeatal unit andoutflow pathways from maxillary sinuses appear patent & satisfactory The ethmoid air cells are well-developed and clear. Sphenoid sinus and frontal sinuses clear no mucosal thickening or inflammatory changes. Orbits unremarkable. The medial wall and floor orbit intact. Globes and retrobulbar region satisfactory. The middle air is clear bilaterally well aerated. Ossicles appear satisfactory. External auditory canal satisfactory. Majority of the mastoid air cells included and unremarkable. Posterior aspect included The region of the fossa of Rosenmuller, eustachian tube. Torus tubarius appears symmetrical. There may be some minor swelling here but overall within normal limits. No apparent lesion. There is minimal air outlining the distal most eustachian tubes leading to these regions of nasopharynx. Air slightly more evident along distal right eustachian tube region than left. No pathology otherwise lung eustachian tubes.. IMPRESSION. . The paranasal sinuses are well-developed and clear.Also Middle ear clear/unremarkable r. Nasopharynx structures appear satisfactory. Only question scant minor swelling in and towards this region.. Minimal air seen along the distal eustachian tubes noted bilaterally. No significant evident pathology along the course of eustachian tubes evident on this study.
== END ==
LOC: RAD 14:59
DX: H69.83 Other specified disorders of Eustachian tube, bilateral (principal); J01.01 Acute recurrent maxillary sinusitis

== ENCOUNTER → 2017-07-16 | Outpatient (CLI) | payer BC ==
[2017-07-16 13:25] LABS: LYMPH # 0.8 K/mm3 (0.7-4.5)
[2017-07-16 13:56] LABS: HEMOGLOBIN 12.3 g/dL (12.2-16.2)
[2017-07-16 15:32] LABS: NEUTROPHILS 13 % (42-76)
== END ==
LOC: LAB 12:59
PROVIDERS: Nurse Practitioner Family
DX: D70.9 Neutropenia, unspecified (principal)